=== PATIENT | female | born 1985 | race Two or more races ===

== ENCOUNTER 2021-07-21 13:48 | Emergency (ER) | payer BC, SELFPAY ==
[2021-07-21 14:06] VITALS: BP 143/88; PULSE 88; RESP 16; TEMP 37.6; O2SAT 99
--- NOTE | 2021-07-21 14:09 | ED.BACK ---
HPI - Back Pain/Injury General Chief Complaint: Back Pain/Injury Stated Complaint: Left side Pain Time Seen by Provider: 07/21/21 14:09 Source: patient, family and RN notes reviewed Mode of arrival: ambulatory Limitations: no limitations History of Present Illness HPI Narrative: 35-year-old female presents to the [facility] with left lower back pain. Has a history of chronic back issues. Reports history of chronic back pain. Patient states the pain occasionally extends down her left leg. No saddle anesthesia. No loss or retention of bowel or bladder. Walks with a normal gait. Has tried Tylenol with minimal relief MD elicited complaint: back pain Related Data Allergies Allergy/AdvReac Type Severity Reaction Status Date / Time clindamycin Allergy Rash Verified 07/21/21 14:10 Review of Systems Review of Systems: All systems reviewed & are unremarkable except as noted in HPI and below Constitutional: Constitutional: Reports no additional constitutional complaints and Denies weakness Eyes: Eyes: Reports no additional eye complaints ENT: Reports system reviewed and no additional complaints, except as documented Cardiovascular: Cardiovascular: Reports no additional cardiovascular complaints and Denies chest pain Respiratory: Respiratory: Reports no additional respiratory complaints, Denies cough and Denies dyspnea Gastrointestinal: Gastrointestinal: Reports no additional gastrointestinal complaints, Denies abdominal pain, Denies nausea and Denies vomiting Genitourinary: Genitourinary: Denies urinary incontinence Musculoskeletal: Musculoskeletal: Reports as per HPI, Reports back pain (Left lower) and Denies numbness Integumentary/Breasts: Skin/Breast: Reports system reviewed and no additional complaints, except as docu Neurologic: Reports system reviewed and no additional complaints, except as documented, Denies focal weakness, Denies numbness and Denies weakness Psychiatric: Psychiatric: Reports no additional psychiatric complaints Allergic/Immunologic: Allergic/Immunologic: Reports no additional allergic/immunologic complaints PMFSH Past Medical History Medical History (Updated 07/23/21 @ 10:58 by Cindy Coker APRN) Patient denies medical problems Surgical History Surgical History (Updated 07/23/21 @ 10:57 by Cindy Cokre APRN) No pertinent past surgical history Comments At the time of my signature, I reviewed and agree with the nursing past medical, surgical, social, and family history. There is no relevant family history pertinent to the patient complaint. Exam Const: General: healthy appearing, no acute distress and alert Nutritional Appearance: well nourished and obese Orientation/consciousness: patient oriented x3 Limitations: no limitations HENMT: Head: normal to inspection Ears: external ears normal Eyes: Pupils: Equal, round and reactive pupils present Neck: Neck: normal visual inspection, no lymphadenopathy and no meningeal signs Chest: Chest palpation & inspection: normal inspection of the chest Resp: Effort & Inspection: normal respiratory effort and no use of accessory muscles Auscultation: clear to auscultation bilaterally, no crackles, no rales, no rhonchi and no wheezes Cardio: Rate: regular rate Rhythm: regular rhythm GI: GI Palp: Yes Soft to palpation, No Tenderness to palpation present (GI) and No Guarding due to palpation present (GI) : General: Yes no CVA tenderness Back/Spine/Pelvis: Back: no CVA tenderness Cervical Spine: normal cervical lordosis Thoracic/Lumbar Spine: thoracic and lumbar spine normal to inspection, No thoraco-lumbar spasm and No thoracic spinal tenderness Pelvis: no pain with anterior-posterior compression and no pain with lateral compression Other: Patient reports left lower back pain that is not reproducible with palpation, compression, movement. No midline tenderness. Skin: General skin exam: normal color Rashes: no rashes Wounds: no wo
== END 2021-07-21 14:27 | disposition home or self-care (01) ==
PROVIDERS: Emergency Provider Nurse Practitioner
DX: S39.012A Strain of muscle, fascia and tendon of lower back, initial encounter (principal); X58.XXXA Exposure to other specified factors, initial encounter
CPT/HCPCS: 99203; G0463

== ENCOUNTER 2024-01-15 22:49 | Emergency (ER) | payer BC, SELFPAY ==
[2024-01-15 22:59] VITALS: BP 141/93; PULSE 88; RESP 15; TEMP 37.4; O2SAT 97
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
[2024-01-16 00:15] LABS: Add Urine Microscopic? YES; Appearance Urine Clear (Clear); Bacteria Urine None Seen /hpf; Basophils Percent Auto 0.2 % (0.2-1.2); Bilirubin Urine Negative (Negative); Blood Urine Negative (Negative); Color Urine Yellow (Yellow); Glucose Urine UA Negative (Negative); Hematocrit 39.9 % (37.0-47.0); Hemoglobin 13.2 g/dL (12.0-15.0); Immature Granulocyte Absolute 0.04 K/mm3 (0.00-0.031); Immature Granulocyte Percent A 0.4 % (0-0.5); Ketones Urine Trace mg/dL (Negative); Leukocyte Esterase Ur Negative LEU/UL (Negative); Lymphocytes Absolute Auto 2.13 K/mm3 (0.9-3.2); Lymphocytes Percent Auto 20.8 % (18.3-44.2); Mean Corpuscular HGB Conc 33.1 g/dl (32-36); Mean Corpuscular Hemoglobin 30.5 pg (26-34); Mean Corpuscular Volume 92.1 fl (80-100); Mean Platelet Volume 8.8 fl (7.4-10.4); Monocytes Absolute Auto 0.7 K/mm3 (0.1-0.6); Monocytes Percent Auto 6.5 % (2.6-8.5); Neutrophils Absolute Auto 7.4 K/mm3 (1.3-6.7); Neutrophils Percent Auto 72.1 % (45.5-73.1); Nitrate Urine Negative (Negative); Non Pathogenic Casts 0-2; Platelet Count Result 295 k/mm3 (150-375); Protein Urine Trace mg/dL (Negative); RBC Urine 0-2 /hpf (0-2); Red Blood Count 4.33 M/mm3 (4.2-5.4); Red Cell Distribution Width 13.2 % (11.5-14.5); Specific Grav Ur 1.017 (1.001-1.035); Squamous Epithelial Cell Urine Occasional /hpf (Few); Urobilinogen Urine 0.2 mg/dL (<2.0); WBC Urine 0-5 /hpf (0-3); White Blood Count 10.2 K/mm3 (4.5-10.0); pH Urine 5.5 (5.0-9.0)
[2024-01-16 00:29] LABS: Amphetamine Screen Urine Negative (Negative); Barbiturate Screen Urine Negative (Negative); Benzodiazepines Screen Urine Negative (Negative); Cannabinoid Screen Urine Positive (Negative); Cocaine Screen Urine Negative (Negative); Methadone Screen Urine Negative (Negative); Opiate Screen Urine Negative (Negative); Phencyclidine Screen Urine Negative (Negative)
[2024-01-16 00:35] LABS: BEDSIDEPREGUCG Negative
[2024-01-16 00:36] LABS: Alanine Aminotransferase 14 U/L (6-35); Albumin Level 4.5 g/dL (3.5-5.1); Alkaline Phosphatase 58 U/L (38-126); Anion Gap 10 mmol/L (4-12); Aspartate Amino Transferase 20 U/L (14-36); Bilirubin,Total 0.7 mg/dL (0.2-1.3); Blood Urea Nitrogen 7 mg/dL (7-17); Calcium 9.5 mg/dL (8.4-10.2); Carbon Dioxide 24 mmol/L (22-30); Chloride 101 mmol/L (98-107); Estimated CRCL calculation 101 ml/min; Estimated Glomerular Filt Rate > 60; Glucose 97 mg/dL (65-110); Potassium 3.8 mmol/L (3.4-5.0); Sodium 135 mmol/L (137-145)
[2024-01-16 00:59] LABS: Ethanol 41 mg/dL (<10)
--- NOTE | 2024-01-16 01:07 | PC.NURSE ---
Med clear per Gamal Camacho PA-C.
[2024-01-16 03:34] VITALS: PULSE 91; RESP 15; O2SAT 99
== END 2024-01-16 03:36 | disposition home or self-care (01) ==
PROVIDERS: Emergency Medicine; Emergency Provider Physician Assistant
DX: F41.0 Panic disorder [episodic paroxysmal anxiety] (principal)
CPT/HCPCS: 36415; 80053; 80307; 81001; 81025; 84443; 85025; 99284

== ENCOUNTER 2024-01-17 22:21 | Emergency (ER) | payer BC, SELFPAY ==
[2024-01-17 22:27] VITALS: BP 183/97; PULSE 112; RESP 22; TEMP 36.9; O2SAT 100
[2024-01-17 23:00] LABS: Basophils Percent Auto 0.2 % (0.2-1.2); Hematocrit 38.9 % (37.0-47.0); Hemoglobin 13.3 g/dL (12.0-15.0); Immature Granulocyte Absolute 0.07 K/mm3 (0.00-0.031); Immature Granulocyte Percent A 0.5 % (0-0.5); Lymphocytes Absolute Auto 3.35 K/mm3 (0.9-3.2); Lymphocytes Percent Auto 23.7 % (18.3-44.2); Mean Corpuscular HGB Conc 34.2 g/dl (32-36); Mean Corpuscular Hemoglobin 31.2 pg (26-34); Mean Corpuscular Volume 91.3 fl (80-100); Mean Platelet Volume 8.6 fl (7.4-10.4); Monocytes Absolute Auto 0.8 K/mm3 (0.1-0.6); Monocytes Percent Auto 5.6 % (2.6-8.5); Neutrophils Absolute Auto 9.9 K/mm3 (1.3-6.7); Platelet Count Result 296 k/mm3 (150-375); Red Blood Count 4.26 M/mm3 (4.2-5.4); Red Cell Distribution Width 13.2 % (11.5-14.5); White Blood Count 14.1 K/mm3 (4.5-10.0)
[2024-01-17 23:17] LABS: Ethanol 14 mg/dL (<10)
[2024-01-17 23:22] LABS: Alanine Aminotransferase 13 U/L (6-35); Albumin Level 4.5 g/dL (3.5-5.1); Alkaline Phosphatase 60 U/L (38-126); Anion Gap 14 mmol/L (4-12); Aspartate Amino Transferase 20 U/L (14-36); Bilirubin,Total 0.9 mg/dL (0.2-1.3); Blood Urea Nitrogen 5 mg/dL (7-17); Calcium 9.2 mg/dL (8.4-10.2); Carbon Dioxide 20 mmol/L (22-30); Chloride 100 mmol/L (98-107); Estimated Glomerular Filt Rate > 60; Glucose 146 mg/dL (65-110); Potassium 2.7 mmol/L (3.4-5.0); Sodium 134 mmol/L (137-145)
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
[2024-01-18] VITALS (8 sets, daily range): BP systolic 106–157; BP diastolic 65–98; PULSE 55–83; RESP 13–20; O2SAT 100
[2024-01-18 00:13] LABS: BEDSIDEPREGUCG Negative
[2024-01-18 00:21] LABS: Amphetamine Screen Urine Negative (Negative); Bacteria Urine Rare /hpf; Barbiturate Screen Urine Negative (Negative); Benzodiazepines Screen Urine Negative (Negative); Cannabinoid Screen Urine Positive (Negative); Cocaine Screen Urine Negative (Negative); Methadone Screen Urine Negative (Negative); Opiate Screen Urine Negative (Negative); Phencyclidine Screen Urine Negative (Negative); RBC Urine 0-2 /hpf (0-2); Squamous Epithelial Cell Urine Few /hpf (Few)
[2024-01-18] MEDS: LORazepam (*CRX) 0.5 MG TABLET PO (00:24)
[2024-01-18] MEDS: POTASSIUM CHLORIDE 20 MEQ ER TABLET 40 MEQ PO (00:24)
[2024-01-18 00:35] LABS: Add Urine Microscopic? YES
[2024-01-18 00:36] LABS: Appearance Urine Clear (Clear); Bilirubin Urine 1+ (Negative); Blood Urine Trace (Negative); Color Urine Yellow (Yellow); Glucose Urine UA Negative (Negative); Ketones Urine Trace mg/dL (Negative); Nitrate Urine Negative (Negative); Protein Urine 2+ mg/dL (Negative)
[2024-01-18 00:37] LABS: Leukocyte Esterase Ur Negative LEU/UL (Negative); Urobilinogen Urine 0.2 mg/dL (<2.0)
--- NOTE | 2024-01-18 01:15 | ECG_ITS ---
Test Date: 2024-01-18 01:53:37 Measurements Intervals [place] Rate: 79 P: 57 CA: 140 QRS: 63 QRSD: 87 T: 52 QT: 390 QTc: 448 Interpretive Statements SINUS RHYTHM EARLY PRECORDIAL R/S TRANSITION BORDERLINE ECG No previous ECG available for comparison Electronically Signed On 01-18-2024 07:57:43 CDT by Jude Hernandez D.O.
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
[2024-01-18] MEDS: POTASSIUM CHLORIDE INJ 40 MEQ in SODIUM CHLORIDE 0.9% IV 500 ML 130 MEQ IVPB (02:05)
[2024-01-18] MEDS: SODIUM CHLORIDE 0.9% IV 1,000 ML 999 ML IV CONT (02:06)
[2024-01-18 06:33] LABS: Anion Gap 4 mmol/L (4-12); Blood Urea Nitrogen 4 mg/dL (7-17); Carbon Dioxide 25 mmol/L (22-30); Chloride 107 mmol/L (98-107); Estimated Glomerular Filt Rate > 60; Potassium 4.8 mmol/L (3.4-5.0); Sodium 136 mmol/L (137-145)
[2024-01-18 06:34] LABS: Alanine Aminotransferase 12 U/L (6-35); Albumin Level 3.7 g/dL (3.5-5.1); Alkaline Phosphatase 49 U/L (38-126); Aspartate Amino Transferase 18 U/L (14-36); Bilirubin,Total 1.1 mg/dL (0.2-1.3); Calcium 8.4 mg/dL (8.4-10.2); Glucose 106 mg/dL (65-110)
[2024-01-18 07:42] LABS: SARS-CoV-2 RNA PCR Negative (Negative)
--- NOTE | 2024-01-18 11:07 | PC.NURSE ---
1100 Pt accepted to [facility] under Dr. Savage to room 1458 and to call report at [phone] ext [phone] when pt leaves/when ambulance arrives.
--- NOTE | 2024-01-18 11:51 | PC.NURSE ---
Addendum entered by ALPESH Gonzales 01/18/24 12:19: Pt is to be transferred to [facility] Room 1458 in [place], [place]. Contacted [facility] at 1023 for transport. After talking with their carpenters supervisor, they accepted the transfer at 1105 with an ETA of 01/19/2024 at 0900. Contacted [facility] at 1106 for transport. After talking with their carpenters supervisor, their first available for this transfer would be 01/21/2024. [facility] trip was cancelled. [facility] is scheduled to be here 8 at 0900 for transport Original Note: Pt is to be transferred to [facility] 1458 in [place], [place]. Contacted [facility] at 1023 for transport. After talking with their carpenters supervisor, they accepted the transfer at 1105 with an ETA of 12/19/2023 at 0900. Contacted [facility] at 1106 for transport. After talking with their carpenters supervisor, their first available for this transfer would be 12/21/2023. [facility] trip was cancelled. [facility] is scheduled to be here 12/18 at 0900 for transport
--- NOTE | 2024-01-18 12:41 | PC.NURSE ---
Spoke with Gianna from [facility] who states they will hold the pts bed for 24 hours.
[2024-01-18] MEDS: LORazepam (*CRX) 0.5 MG TABLET 1 MG PO (13:04)
--- NOTE | 2024-01-18 13:12 | PC.NURSE ---
Spoke with Charlene from [facility] and let her know the pt will no longer be transferred to their facility due to pt being discharged.
== END 2024-01-18 13:14 | disposition short-term general hospital (02) ==
PROVIDERS: Emergency Medicine; Physician Assistant; Emergency Provider Emergency Medicine
DX: F41.9 Anxiety disorder, unspecified (principal); F22 Delusional disorders; Z20.822 Contact with and (suspected) exposure to COVID-19; R82.998 Other abnormal findings in urine
CPT/HCPCS: 36415; 80053; 80307; 81001; 81025; 84443; 85025; 87086; 87635; 93005; 96365; 96366; 99285; A9270; J3480; J7030; J7040

== ENCOUNTER 2025-02-02 20:52 | Emergency (ER) | payer BC, SELFPAY ==
[2025-02-02 20:53] VITALS: BP 149/93; PULSE 90; RESP 18; TEMP 36.7; O2SAT 100
--- NOTE | 2025-02-02 21:21 | ED.GENADULT ---
HPI - General Adult General Chief complaint: Anxiety Stated complaint: ANXIETY, 18 WKS PREG Source: patient Mode of arrival: ambulatory Limitations: no limitations History of Present Illness HPI narrative: 39 years old female history of bipolar,, depression, anxiety, questionable schizophrenia. Patient quit taking her psych medication June 2024 because she does not make her feel any better. Patient currently is 19 weeks . Came to the emergency room feeling stressed and anxious about some family member will today. Patient is telling me that January have a lot of per the is related to her family and usually somebody that I during this month. Today 1 of her family member have a birthday and she is very concerned about. She denies any suicidal or homicidal ideation, fever, chills, nausea, vomiting, abdominal pain, chest pain, shortness of breath, headache. Patient reported this cycle of anxiety recur every year in January. Patient believed that she need somebody to talk to. Related Data Home Medications ?Medication ?Instructions ?Recorded ?Confirmed ?Last Taken ?Type No Home Medications 01/18/24 01/18/24 Unknown History Allergies Allergy/AdvReac Type Severity Reaction Status Date / Time diphenhydramine (From Allergy Intermediate Unknown Verified 02/02/25 20:55 Benadryl) clindamycin Allergy Rash Verified 02/02/25 20:55 Review of Systems Review of Systems: All systems reviewed & are unremarkable except as noted in HPI and below PMFSH Past Medical History Medical History Patient denies medical problems Surgical History Surgical History No pertinent past surgical history Social History Social History Substance use type: unknown Exam Narrative: General appearance: Well-developed, well-nourished not in any pain or distress very come Skin: Normal color Head: Normocephalic, nontraumatic Eyes: Clear conjunctiva ENT: Oropharynx normal, ears normal, nose normal Neck: Supple, nontender Chest and respiratory: Airway patent, no respiratory distress, no accessory muscle use Heart: Regular rate/rhythm Abdomen: Soft, nontender, no organomegaly, quiet bowel sounds Vascular: Normal peripheral pulses, normal capillary refill. Musculoskeletal: Normal range of motion, nontender back Neurologic: Alert and oriented ?3, PHYSICAL EDUCATION SPECIALIST is normal as tested, no gross motor deficit Course Vital Signs Vital signs: Vital Signs Temperature 36.7 C 02/02/25 20:53 Pulse Rate 90 02/02/25 20:53 Respiratory Rate 18 02/02/25 20:53 Blood Pressure 149/93 H 02/02/25 20:53 Pulse Oximetry 100 02/02/25 20:53 Oxygen Delivery Room Air 02/02/25 20:53 Temperature 36.7 C 02/02/25 20:53 Pulse Rate 90 02/02/25 20:53 Respiratory Rate 18 02/02/25 20:53 Blood Pressure 149/93 H 02/02/25 20:53 Pulse Oximetry 100 02/02/25 20:53 Oxygen Delivery Room Air 02/02/25 20:53 Medical Decision Making MDM Narrative Medical decision making narrative: Anxiety like symptoms, impending doom, of her medication Patient is not suicidal or homicidal Blood workup or imaging are not required at this time. Patient was advised to follow-up with her psychiatrist as soon as possible Differential Diagnosis Differential Diagnosis: Anxiety, depression, Vital Signs Vital Signs: Vital Signs Temperature 36.7 C 02/02/25 20:53 Pulse Rate 90 02/02/25 20:53 Respiratory Rate 18 02/02/25 20:53 Blood Pressure 149/93 H 02/02/25 20:53 Pulse Oximetry 100 02/02/25 20:53 Oxygen Delivery Room Air 02/02/25 20:53 Temperature 36.7 C 02/02/25 20:53 Pulse Rate 90 02/02/25 20:53 Respiratory Rate 18 02/02/25 20:53 Blood Pressure 149/93 H 02/02/25 20:53 Pulse Oximetry 100 02/02/25 20:53 Oxygen Delivery Room Air 02/02/25 20:53 Critical Care Time Critical Care Time Critical Care Time: No Discharge Plan Discharge Clinical Impression: Anxiety Patient Disposition: Home Condition: Stable Instructions: Anxiety (ED) Additional Instructions: Return if symptoms are worsening , call your family physician for appointment, take Tylenol as as needed for aches and pain, continue home medications. Patient Language: Portuguese Prescriptions: No Action No Home Medications Follow-up/Referrals: PHYSICIAN NOT ON STAFF,NONSTAFF [Primary Care Provider] Stand Alone Forms: Work/School Release IP
[2025-02-02 21:39] VITALS: BP 123/92; PULSE 80; RESP 18; O2SAT 100
== END 2025-02-02 21:39 | disposition home or self-care (01) ==
PROVIDERS: Emergency Provider Emergency Medicine
DX: O99.342 Other mental disorders complicating pregnancy, second trimester (principal); Z3A.18 18 weeks gestation of pregnancy
CPT/HCPCS: 99281